=== PATIENT | female | born 1960 | race African-American/Black ===

== ENCOUNTER 2016-08-03 00:22 | Observation (INO) | payer OTHER ==
[2016-08-03] VITALS (12 sets, daily range): BP systolic 90–157; BP diastolic 55–104; PULSE 73–85; TEMP 97.3–98.7
[~2016-08-03] VITALS: Ht 157.5 cm; Wt 92.6 kg
[2016-08-03] MEDS ORDERED: HYZAAR 25 MG-101 TAB PO (00:33)
[2016-08-03] MEDS ORDERED: LEVEMIR SQ (00:35)
[2016-08-03] MEDS ORDERED: NORCO 325 MG-101 TAB PO (00:37)
[2016-08-03] MEDS ORDERED: COREG 3.123.125 MG/T PO (00:37)
[2016-08-03 00:46] LABS: BASO % 0.5 % (0.0-2.0); EOS # 0.1 (0.0-0.7); EOS % 1.4 % (0-4.0); GRAN # 3.6 (1.4-6.5); GRAN % 56.5 % (42.2-75.2); HEMATOCRIT 39.3 % (37.0-47.0); HEMOGLOBIN 13.5 g/dl (12.5-16.0); LYMPH # 2.3 (1.2-3.4); LYMPH % 36.5 % (20.0-51.0); MEAN CELL VOLUME 87 fl (80.0-100.0); MEAN CORPUSCULAR HEMOGLOBIN 30 pg (27.0-31.0); MEAN CORPUSCULAR HGB CONC 34 g/dl (33.0-37.0); MEAN PLATELET VOLUME 12.1 fl (7.4-10.4); MONO # 0.3 (0.1-0.6); MONO % 4.9 % (1.7-9.3); PLATELET COUNT 201 K/mm3 (130-400); RED BLOOD COUNT 4.54 M/mm3 (4.10-5.30); REDCELL DISTRIBUTION WIDTH-CV 13.1 % (11.5-14.5); WHITE BLOOD COUNT 6.4 K/mm3 (4.8-10.8)
[2016-08-03 00:56] LABS: ADJUSTED CALCIUM 9.3 mg/dL (8.4-10.2); ALANINE AMINOTRANSFERASE 28 U/L (9-52); ALBUMIN 4.1 gm/dL (3.5-5.0); ALKALINE PHOSPHATASE 91 U/L (50-136); ANION GAP 12 mmol/L (7-16); BILIRUBIN,TOTAL 0.5 mg/dL (0.0-1.0); BLOOD UREA NITROGEN 14 mg/dL (7-17); CALCIUM 9.4 mg/dL (8.4-10.2); CARBON DIOXIDE 26 mmol/L (22-30); CHLORIDE 105 mmol/L (98-107); CREATININE, serum 0.59 mg/dL (0.52-1.25); GLUCOSE 217 mg/dL (74-106); LIPASE 59 U/L (23-300); POTASSIUM 3.8 mmol/L (3.4-5.0); SODIUM 144 mmol/L (137-145); TOTAL PROTEIN 7.8 gm/dL (6.4-8.2)
[2016-08-03 01:12] LABS: TROPONIN-I < 0.012 ng/mL (0.000-0.034)
[2016-08-03 01:44] LABS: PH 5 (5-8); SQUAMOUS EPITHELIAL 0-2 /hpf; URINE APPEARANCE Clear; URINE BACTERIA Rare /hpf; URINE BILIRUBIN Negative (NEGATIVE); URINE BLOOD Negative (NEGATIVE); URINE COLOR Yellow; URINE GLUCOSE 1+ (NEGATIVE); URINE KETONE Negative (NEGATIVE); URINE RBC 0-2 /hpf; URINE UROBILINOGEN Negative (NEGATIVE); URINE WBC 0-2 /hpf
[2016-08-03] MEDS ORDERED: SKELAXIN 800MG800 MG PO (03:09)
[2016-08-03] MEDS ORDERED: XANAX 1MG1 MG PO (03:10)
[2016-08-03] MEDS ORDERED: NORVASC PO (03:11)
[2016-08-03] MEDS ORDERED: NORVASC2.5 MG PO (03:23)
[2016-08-03 07:37] LABS: INR 1.1 (0.8-3.0); PROTHROMBIN TIME 12.5 SECONDS (9.7-12.8)
[2016-08-03 07:48] LABS: MAGNESIUM 1.7 mg/dL (1.6-2.3)
[2016-08-03 08:09] LABS: CHOLESTEROL 193 mg/dL (120-200); HDL CHOLESTEROL 59 mg/dL; LDL CHOLESTEROL 113 mg/dL; TRIGLYCERIDE 106 mg/dL
[2016-08-03] MEDS ORDERED: PRAVACHOL 20MG20 MG PO (16:58)
== END 2016-08-03 18:12 | disposition home or self-care (01) ==
LOC: COL.ER 00:22 → MEDICAL 02:12
PROVIDERS: Emergency Medicine; Internal Medicine
DX: R55 Syncope and collapse (principal); K30 Functional dyspepsia; R00.2 Palpitations; I50.9 Heart failure, unspecified; I10 Essential (primary) hypertension; I42.8 Other cardiomyopathies; I25.10 Atherosclerotic heart disease of native coronary artery without angina pectoris; E11.40 Type 2 diabetes mellitus with diabetic neuropathy, unspecified; Z79.4 Long term (current) use of insulin; M54.9 Dorsalgia, unspecified; R26.9 Unspecified abnormalities of gait and mobility; E66.9 Obesity, unspecified; Z96.651 Presence of right artificial knee joint
CPT/HCPCS: A9502; G0378; J1644; J2270; J2785; J7030

== ENCOUNTER → 2018-07-04 | Outpatient (CLI) | payer MEDICARE ==
[~2018-07-04] MED LIST: COREG 3.123.125 MG/T PO; HYZAAR 25 MG-101 TAB PO; LEVEMIR SQ; NORCO 325 MG-101 TAB PO; NORVASC PO; NORVASC2.5 MG PO; PRAVACHOL 20MG20 MG PO; SKELAXIN 800MG800 MG PO; XANAX 1MG1 MG PO
== END ==
LOC: MHCPAIN 13:57
DX: G89.29 Other chronic pain (principal); M54.12 Radiculopathy, cervical region; M47.812 Spondylosis without myelopathy or radiculopathy, cervical region
CPT/HCPCS: G0463

== ENCOUNTER → 2018-07-05 | Outpatient (CLI) | payer MEDICARE | LOC: MHCPAIN 10:57 | DX: G89.29 Other chronic pain (principal); M54.12 Radiculopathy, cervical region; M47.812 Spondylosis without myelopathy or radiculopathy, cervical region | CPT/HCPCS: J1100; Q9967 ==

== ENCOUNTER → 2018-07-12 | Outpatient (CLI) | payer MEDICARE | LOC: MHCPAIN 08:12 | DX: M47.812 Spondylosis without myelopathy or radiculopathy, cervical region (principal); M54.12 Radiculopathy, cervical region | CPT/HCPCS: J1100; Q9967 ==

== ENCOUNTER → 2019-01-02 | Outpatient (CLI) | payer MEDICARE | LOC: COL.RAD 08:54 | DX: M25.561 Pain in right knee (principal); Z96.651 Presence of right artificial knee joint | CPT/HCPCS: A9503 ==